=== PATIENT | male | born 1980 | race Caucasian/White ===

== ENCOUNTER 2017-04-18 23:26 | Emergency (ER) | payer BC ==
[~2017-04-18] VITALS: Ht 167.6 cm; Wt 68.0 kg
[~2017-04-18 23:26] MED LIST: AMOXICILLIN500 MG OR; ATIVAN1 M1 OR; EFFEXOR XR150 MG OR; EXCEDRI1 OR; FLEXERIL OR; FLEXERIL10 MG PO; LORTAB5 OR; MEDDOSEPAK OR; NAPROSYN500 MG OR; NAPROSYN500 MG PO; NO HOME MEDS; NO MEDICATIONS; PENICILLN VK500 M1 OR; PERCOCET1 TA2 PO; PREVACID30 M1 OR; PREVACID30 M2 PO; SEROQUEL100 MG OR; TORADOL PO; ULTRAM50 MG OR; ZOLOFT50 MG OR; ZYPREXA5 MG OR
[2017-04-19] MEDS ORDERED: TORADOL PO (00:32)
[2017-04-19 00:42] VITALS: BP 127/91
== END 2017-04-19 00:43 | disposition home or self-care (01) | DRG 93 ==
LOC: ED 23:26
DX: G89.29 Other chronic pain (principal); R10.31 Right lower quadrant pain

== ENCOUNTER 2017-10-31 14:43 | Emergency (ER) | payer BC ==
[~2017-10-31] VITALS: Ht 167.6 cm; Wt 71.4 kg
[2017-10-31] MEDS ORDERED: HYDROCO/APAP1 T10 PO (14:52)
[2017-10-31] MEDS ORDERED: AMOXICILLIN500 MG PO (15:01)
[2017-10-31] MEDS ORDERED: CORTISPORIN OTI10 ML AD (15:01)
[2017-10-31] MEDS ORDERED: TORADOL PO (15:01)
[2017-10-31 15:02] VITALS: BP 122/82
== END 2017-10-31 15:06 | disposition home or self-care (01) | DRG 153 ==
LOC: ED 14:43
DX: H66.91 Otitis media, unspecified, right ear (principal); H60.91 Unspecified otitis externa, right ear; H92.01 Otalgia, right ear

== ENCOUNTER 2018-09-28 21:02 | Emergency (ER) | payer BC ==
[~2018-09-28] VITALS: Ht 167.6 cm; Wt 60.5 kg
[~2018-09-28 21:02] MED LIST changes: +AMOXICILLIN500 MG PO; +CORTISPORIN OTI10 ML AD; +HYDROCO/APAP1 T10 PO
[2018-09-28] MEDS ORDERED: VOLTAREN - GENE75 MG PO (23:08)
[2018-09-29] VITALS: BP 140/92
== END 2018-09-29 00:06 | disposition home or self-care (01) | DRG 563 ==
LOC: ED 21:02
DX: S63.501A Unspecified sprain of right wrist, initial encounter (principal); M25.531 Pain in right wrist; W01.0XXA Fall on same level from slipping, tripping and stumbling without subsequent striking against object, initial encounter; Y93.01 Activity, walking, marching and hiking; Y92.009 Unspecified place in unspecified non-institutional (private) residence as the place of occurrence of the external cause

== ENCOUNTER 2020-11-20 17:55 | Emergency (ER) | payer BC ==
[~2020-11-20 17:55] MED LIST changes: +VOLTAREN - GENE75 MG PO
[2020-11-20 21:22] LABS: HEMATOCRIT 43.9 % (39.0-50.0); HEMOGLOBIN 14.2 g/dl (14.0-18.0); IMMATURE GRANULOCYTES 0.3 % (0.0-5.0); MEAN CELL VOLUME 91.6 fL CALC (80.0-100.0); MEAN CORPUSCULAR HGB 29.6 pG CALC (26.0-32.0); MEAN CORPUSCULAR HGB CONC 32.3 g/dL CAL (32.0-36.0); NEUT# 1.84 thou/uL (1.82-7.42); RED BLOOD COUNT 4.79 mill/uL (4.70-6.10); RED CELL DISTRI WIDTH 12.8 % (11.5-15.5)
[2020-11-20 23:43] VITALS: BP 104/69
== END 2020-11-20 23:45 | disposition home or self-care (01) | DRG 179 ==
LOC: ED 17:55
PROVIDERS: Family Medicine
DX: U07.1 COVID-19 (principal); F17.200 Nicotine dependence, unspecified, uncomplicated

== ENCOUNTER 2022-01-19 19:30 | Emergency (ER) | payer BC ==
[~2022-01-19] VITALS: Ht 167.6 cm; Wt 63.0 kg
[2022-01-19 20:28] VITALS: BP 125/81
[2022-01-19] MEDS ORDERED: TRAMADOL HCL50 MG PO (21:40)
[2022-01-19] MEDS ORDERED: VOLTAREN75 MG PO (21:40)
== END 2022-01-19 21:59 | disposition home or self-care (01) | DRG 156 ==
LOC: ED 19:30
DX: S02.2XXA Fracture of nasal bones, initial encounter for closed fracture (principal); S00.12XA Contusion of left eyelid and periocular area, initial encounter; S16.1XXA Strain of muscle, fascia and tendon at neck level, initial encounter; F17.210 Nicotine dependence, cigarettes, uncomplicated; Y04.2XXA Assault by strike against or bumped into by another person, initial encounter

== ENCOUNTER 2022-06-21 06:35 | Emergency (ER) | payer BC ==
[2022-06-21] VITALS (8 sets, daily range): BP systolic 107–127; BP diastolic 77–90
[~2022-06-21] VITALS: Ht 167.6 cm; Wt 59.0 kg
[~2022-06-21 06:35] MED LIST changes: +TRAMADOL HCL50 MG PO; +VOLTAREN75 MG PO
[2022-06-21] MEDS ORDERED: ZPAK PO ×2 (07:31→11:08)
[2022-06-21] MEDS ORDERED: IPRATROPIU0.5 MG/3 M IN ×2 (07:31→11:08)
[2022-06-21] MEDS ORDERED: VENTOLIN HFA108 MCG PO ×2 (07:31→11:08)
[2022-06-21] MEDS ORDERED: AMOX/K CLAV875 M1 PO ×2 (07:31→11:08)
[2022-06-21] MEDS ORDERED: NEBULIZER KIT/TUBING PO (07:31)
[2022-06-21] MEDS ORDERED: PREDNISONE50 MG PO ×2 (07:31→11:08)
== END 2022-06-21 09:10 | disposition home or self-care (01) | DRG 153 ==
LOC: ED 06:35
DX: J06.9 Acute upper respiratory infection, unspecified (principal); Z20.822 Contact with and (suspected) exposure to COVID-19; F17.210 Nicotine dependence, cigarettes, uncomplicated

== ENCOUNTER 2022-07-01 21:44 | Emergency (ER) | payer BC ==
[~2022-07-01] VITALS: Ht 167.6 cm; Wt 66.7 kg
[~2022-07-01 21:44] MED LIST changes: +AMOX/K CLAV875 M1 PO; +IPRATROPIU0.5 MG/3 M IN; +NEBULIZER KIT/TUBING PO; +PREDNISONE50 MG PO; +VENTOLIN HFA108 MCG PO; +ZPAK PO
[2022-07-01 23:28] VITALS: BP 111/60
[2022-07-02 01:00] LABS: BASO% 0.3 % (0-3); EOS% 1.6 % (0-8); HEMATOCRIT 45.8 % (39.0-50.0); HEMOGLOBIN 14.5 g/dl (14.0-18.0); IMMATURE GRANULOCYTES 1.3 % (0.0-5.0); LYMPH% 27.8 % (15-41); MEAN CELL VOLUME 90.7 fL CALC (80.0-100.0); MEAN CORPUSCULAR HGB 28.7 pG CALC (26.0-32.0); MEAN CORPUSCULAR HGB CONC 31.7 g/dL CAL (32.0-36.0); NEUT# 7.58 thou/uL (1.82-7.42); RED BLOOD COUNT 5.05 mill/uL (4.70-6.10); RED CELL DISTRI WIDTH 12.4 % (11.5-15.5)
[2022-07-02] MEDS ORDERED: TYLENOL # 31 TA1 PO (01:12)
[2022-07-02] MEDS ORDERED: LEVAQUIN750 M1 PO (01:12)
== END 2022-07-02 01:42 | disposition home or self-care (01) | DRG 203 ==
LOC: ED 21:44
PROVIDERS: Family Medicine
DX: J20.9 Acute bronchitis, unspecified (principal); R07.89 Other chest pain; F17.200 Nicotine dependence, unspecified, uncomplicated

== ENCOUNTER 2022-12-28 02:48 | Emergency (ER) | payer BC ==
[~2022-12-28] VITALS: Ht 167.6 cm; Wt 66.0 kg
[~2022-12-28 02:48] MED LIST changes: +LEVAQUIN750 M1 PO; +TYLENOL # 31 TA1 PO
[2022-12-28 05:33] LABS: BASO% 0.8 % (0-3); EOS% 3.2 % (0-8); HEMATOCRIT 45.9 % (39.0-50.0); HEMOGLOBIN 14.5 g/dl (14.0-18.0); IMMATURE GRANULOCYTES 0.1 % (0.0-5.0); LYMPH% 29.2 % (15-41); MEAN CELL VOLUME 92.9 fL CALC (80.0-100.0); MEAN CORPUSCULAR HGB 29.4 pG CALC (26.0-32.0); MEAN CORPUSCULAR HGB CONC 31.6 g/dL CAL (32.0-36.0); MONO% 10.1 % (2-13); NEUT# 4.76 thou/uL (1.82-7.42); NEUT% 56.6 % (42-76); RED BLOOD COUNT 4.94 mill/uL (4.70-6.10)
[2022-12-28 05:36] LABS: ALBUMIN 4.2 g/dL (3.2-5.0); ALKALINE PHOSPHATASE 69 u/l (38-126); BILIRUBIN, TOTAL 0.8 mg/dL (0.2-1.3); BUN 16 mg/dL (9-20); BUN/CREATININE RATIO 16 (12-20 (CALC)); CARBON DIOXIDE 24 mmol/l (22-30); CHLORIDE 105 mmol/l (95-108); CPK 109 u/l (55-170); GFR FOR AFR.AMER. > 60 ML/MIN (>=60 (CALC)); GFR OTHER RACES > 60 ML/MIN (>=60 (CALC)); SODIUM 138 mmol/l (137-146)
[2022-12-28 05:37] LABS: ANION GAP 14 (6-22 (CALC)); POTASSIUM 4.7 mmol/l (3.5-5.1); SGOT/AST 39 u/l (17-59)
[2022-12-28] MEDS ORDERED: VENTOLIN HFA108 MCG IN (06:24)
[2022-12-28] MEDS ORDERED: MEDDOSEPAK PO (06:24)
[2022-12-28] MEDS ORDERED: ZITHROMAX Z-PA250 MG PO (06:24)
[2022-12-28] MEDS ORDERED: OMNI-PAC300 MG PO (06:24)
[2022-12-28 06:45] VITALS: BP 116/84
== END 2022-12-28 07:03 | disposition home or self-care (01) | DRG 195 ==
LOC: ED 02:48
PROVIDERS: Internal Medicine
DX: J18.9 Pneumonia, unspecified organism (principal); F17.200 Nicotine dependence, unspecified, uncomplicated; Z20.822 Contact with and (suspected) exposure to COVID-19
CPT/HCPCS: J1100